=== PATIENT | female | born 1940 | race Caucasian/White ===

== ENCOUNTER 2024-09-15 13:26 | Inpatient (IN) | payer OTHER ==
[2024-09-15] VITALS (9 sets, daily range): BP systolic 93–113; BP diastolic 53–74
[~2024-09-15] VITALS: Ht 157.5 cm; Wt 45.5 kg
[2024-09-15] MEDS ORDERED: SODIUM CHLORIDE 0.9% 1,000 ML IV ONE ×2 (13:40→18:15)
[2024-09-15 14:55] LABS: BASO % 0.2 % (0.0-1.0); EOS % 0.1 % (1.0-4.0); HEMATOCRIT 29.8 % (37.0-47.0); MEAN CELL VOLUME 90.9 fl (81.0-99.0); MEAN CORPUSCULAR HGB 27.7 pg (27.0-31.0); MEAN CORPUSCULAR HGB CONC 30.5 g/dl (33.0-37.0); MEAN PLATELET VOLUME 8.1 fl (9.6-12.3); MONO # 0.4 10*3/uL (0.1-1.0); MONO % 3.1 % (3.0-9.0); NEUT # 10.7 10*3/uL (2.3-7.9); NEUT % 88.2 % (47.0-73.0); PLATELET COUNT AUTOMATED 426 10*3/uL (130-400); RED BLOOD COUNT 3.28 10*6/uL (4.10-5.10); RED CELL DISTRI WIDTH 15.6 % (0-14.5); WHITE BLOOD COUNT 12.1 10*3/uL (4.8-10.8)
[2024-09-15 15:06] LABS: ACT PARTIAL THROMBO TIME 27.4 SECONDS (20.0-32.1)
[2024-09-15 15:35] LABS: ALKALINE PHOSPHATASE 60 U/L (46-116); BUN 17 mg/dl (9-23); CHLORIDE 103 mmol/L (98-107); CPK 547 U/L (34-171); POTASSIUM 3.5 mmol/L (3.4-5.1); TOTAL PROTEIN 6.8 gm/dL (6.0-8.0)
[2024-09-15 15:36] LABS: ETHYL ALCOHOL < 3.0 mg/dl (<3); SGPT/ALT < 7 U/L (5-49)
[2024-09-15] MEDS ORDERED: cefTRIAXone Sodium 1 GM/10 ML SYR IV ONE (15:40)
[2024-09-15] MEDS ORDERED: HEPARIN SODIUM 250 ML IV SCH (16:10)
[2024-09-15 16:57] LABS: BILIRUBIN Negative (Negative); BLOOD Trace-Lysed (Negative); CLARITY Turbid (Clear); COLOR Yellow (Yellow); GLUCOSE Negative (Negative); KETONE Trace (Negative); LEUKO ESTERASE 2+ (Negative); NITRITE Negative (Negative); SPECIFIC GRAVITY 1.015 (1.001-1.030); UROBILINOGEN 0.2 E.U./dl (0.0-1.0)
[2024-09-15 17:03] LABS: URINE AMPHETAMINES Negative (1000ng/ml); URINE BARBITURATES Negative (200ng/ml); URINE BENZODIAZEPINES Negative (200ng/ml); URINE CANNABINOIDS (THC) Negative (50ng/ml); URINE COCAINE Negative (300ng/ml); URINE METHADONE Negative (300ng/ml); URINE OPIATES Negative (300ng/ml); URINE PHENCYCLIDINE Negative (25ng/ml)
[2024-09-15 17:21] LABS: PH 8.5 (4.5-8.0)
[2024-09-15 17:23] LABS: BACTERIA 3+; WBC 51-100 wbc/hpf (0-5)
[2024-09-15] MEDS ORDERED: Ondansetron Hydrochloride 4 MG/2 ML VIAL IV PRN (21:55)
[2024-09-15] MEDS ORDERED: MORPHINE Sulfate 2 MG/ML SYR IV PRN (21:55)
[2024-09-15] MEDS ORDERED: BISACODYL 10 MG SUPP R PRN (21:55)
[2024-09-15] MEDS ORDERED: BISACODYL 5 MG TAB PO PRN (21:55)
[2024-09-15] MEDS ORDERED: ACETAMINOPHEN 325 MG TAB PO PRN (21:55)
[2024-09-15] MEDS ORDERED: ASPIRIN 300 MG SUPP R ONE (21:55)
[2024-09-15] MEDS ORDERED: ACETAMINOPHEN 650 MG SUPP R PRN (21:55)
[2024-09-15] MEDS ORDERED: Magnesium Hydroxide 30 ML UDC PO PRN (21:55)
[2024-09-15] MEDS ORDERED: Acetaminophen/Hydrocodone 5 MG/325 MG TABLET PO PRN (21:55)
[2024-09-15] MEDS ORDERED: Metoprolol Tartrate 5 MG/5 ML VIAL IV SCH (22:00)
[2024-09-15] MEDS ORDERED: SODIUM CHLORIDE 0.9% 1,000 ML IV SCH (22:15)
[2024-09-16 06:17] LABS: ACT PARTIAL THROMBO TIME 32.1 SECONDS (20.0-32.1); BASO % 0.2 % (0.0-1.0); EOS % 0.2 % (1.0-4.0); HEMATOCRIT 27.6 % (37.0-47.0); MEAN CELL VOLUME 93.6 fl (81.0-99.0); MEAN CORPUSCULAR HGB 27.8 pg (27.0-31.0); MEAN CORPUSCULAR HGB CONC 29.7 g/dl (33.0-37.0); MEAN PLATELET VOLUME 8.3 fl (9.6-12.3); MONO # 0.5 10*3/uL (0.1-1.0); MONO % 6.5 % (3.0-9.0); NEUT # 6.2 10*3/uL (2.3-7.9); NEUT % 76.2 % (47.0-73.0); PLATELET COUNT AUTOMATED 342 10*3/uL (130-400); RED BLOOD COUNT 2.95 10*6/uL (4.10-5.10); RED CELL DISTRI WIDTH 15.9 % (0-14.5); WHITE BLOOD COUNT 8.2 10*3/uL (4.8-10.8)
[2024-09-16 06:28] LABS: ALKALINE PHOSPHATASE 52 U/L (46-116); BUN 14 mg/dl (9-23); CHLORIDE 107 mmol/L (98-107); CHOLESTEROL 86 mg/dL (<200); FREE T4 0.74 ng/dl (0.89-1.76); LDL CHOLESTEROL 42 mg/dL (9-159); POTASSIUM 3.6 mmol/L (3.4-5.1); TOTAL PROTEIN 5.8 gm/dL (6.0-8.0); TRIGLYCERIDES 101 mg/dl (<150)
[2024-09-16 06:29] LABS: SGPT/ALT < 7 U/L (5-49)
[2024-09-16 06:43] LABS: VITAMIN D, 25-HYDROXY 40.8 ng/mL (30-100)
[2024-09-16 08:00] VITALS: BP 94/58
[2024-09-16] MEDS ORDERED: FEROSUL325 M1 PO (08:43)
[2024-09-16] MEDS ORDERED: OXYCODONE-ACET1 EAC3 PO (08:44)
[2024-09-16] MEDS ORDERED: OXYBUTYNIN10 MG PO (08:44)
[2024-09-16] MEDS ORDERED: FUROSEMIDE40 MG PO (08:45)
[2024-09-16] MEDS ORDERED: CALCIUM PO (08:45)
[2024-09-16] MEDS ORDERED: [UNRECOGNIZED DRUG - OTHER] PO (08:45)
[2024-09-16] MEDS ORDERED: Metoprolol Tartrate 5 MG/5 ML VIAL IV SCH (10:00)
[2024-09-16] MEDS ORDERED: ATORVASTATIN CALCIUM 40 MG TABLET PO SCH (10:00)
[2024-09-16 12:00] VITALS: BP 105/62
[2024-09-16] MEDS ORDERED: SODIUM CHLORIDE 0.9% 1,000 ML IV ONE (12:35)
[2024-09-16] MEDS ORDERED: MAGNESIUM SULFATE 50 ML IV ONE (12:35)
[2024-09-16 16:00] VITALS: BP 112/60
[2024-09-16] MEDS ORDERED: cefTRIAXone Sodium 1 GM,IV 1 EA in SYRINGE INFUSION 10 ML IV SCH (16:00)
[2024-09-16 20:00] VITALS: BP 105/60
[2024-09-16] MEDS ORDERED: Oxybutynin Chloride 5 MG TAB PO SCH (22:00)
[2024-09-17] VITALS: BP 101/53
[2024-09-17 07:46] LABS: BUN 13 mg/dl (9-23); CHLORIDE 108 mmol/L (98-107); POTASSIUM 3.4 mmol/L (3.4-5.1)
[2024-09-17 08:00] VITALS: BP 99/52
[2024-09-17 08:12] LABS: CPK 205 U/L (34-171)
[2024-09-17 12:00] VITALS: BP 102/56
[2024-09-17 16:00] VITALS: BP 107/53
[2024-09-17 20:00] VITALS: BP 101/48
== END 2024-09-17 20:34 | disposition short-term general hospital (02) | DRG 871 ==
LOC: ED 13:26 → 5E 21:33 → EDHOLD 21:33 → 5E 22:41
PROVIDERS: Nurse Practitioner Family; Student in an Organized Health Care Education/Training Program; ADMIT Internal Medicine; ATTEND Internal Medicine
DX: A41.9 Sepsis, unspecified organism (principal); E43 Unspecified severe protein-calorie malnutrition; G93.41 Metabolic encephalopathy; I21.4 Non-ST elevation (NSTEMI) myocardial infarction; N39.0 Urinary tract infection, site not specified; M62.82 Rhabdomyolysis; G45.9 Transient cerebral ischemic attack, unspecified; Z68.1 Body mass index [BMI] 19.9 or less, adult; B88.8 Other specified infestations; M81.0 Age-related osteoporosis without current pathological fracture; E78.5 Hyperlipidemia, unspecified; R31.9 Hematuria, unspecified; B85.0 Pediculosis due to Pediculus humanus capitis; D75.839 Thrombocytosis, unspecified; R73.9 Hyperglycemia, unspecified; D50.9 Iron deficiency anemia, unspecified; E83.39 Other disorders of phosphorus metabolism; R32 Unspecified urinary incontinence; Z90.49 Acquired absence of other specified parts of digestive tract